=== PATIENT | male | born 1955 | race Caucasian/White ===

== ENCOUNTER 2018-02-04 21:43 | Inpatient (IN) | payer MEDICARE, MEDICAID ==
[~2018-02-04] VITALS: Ht 170.2 cm; Wt 131.1 kg
[2018-02-04] MEDS ORDERED: FUROSEMIDE 40MG/4ML VIAL IV STA (22:50)
[2018-02-04] MEDS ORDERED: NITROGLYCERIN OINT 1GM/INCH UDPKT TD STA (22:50)
[2018-02-04 23:24] LABS: CHLORIDE 101 mEq/L (98-107)
[2018-02-04 23:27] LABS: HEMATOCRIT. 25.7 % (42.0-52.0); HEMOGLOBIN. 8.7 g/dL (14.0-18.0); MEAN CORPUSCULAR HEMOGLOBIN 32.1 pg (28.0-32.0); MEAN CORPUSCULAR VOLUME 95.2 fL (80.0-94.0); PLATELET 226 x1000/uL (130-400); RED CELL DISTRIBUTION WIDTH 13.7 % (11.6-14.6)
[2018-02-05] VITALS (8 sets, daily range): BP systolic 126–147; BP diastolic 55–96
[2018-02-05 00:18] LABS: PLATELET ESTIMATE NORMAL
[2018-02-05] MEDS ORDERED: DEXTROSE 50% WATER 50ML SYRINGE IV ONE ×2 (04:25→04:30)
[2018-02-05] MEDS ORDERED: LOSA50TA20 MT (10:11)
[2018-02-05] MEDS ORDERED: GLIP10TA10 MT (10:11)
[2018-02-05] MEDS ORDERED: METF500T6 MT (10:11)
[2018-02-05] MEDS ORDERED: FURO80TA3 MT (10:11)
[2018-02-05] MEDS ORDERED: PRED-276 MT (10:11)
[2018-02-05] MEDS ORDERED: POTA10CA42 MT (10:11)
[2018-02-05] MEDS ORDERED: LEVO500T89 MT (10:11)
[2018-02-05] MEDS ORDERED: MORPHINE SULFATE 4 MG/ML CPJ (NOT FOR IM USE) IV PRN (10:15)
[2018-02-05] MEDS ORDERED: MAGNESIUM/ALUMINUM HYDROXIDE/SIMETHICONE 30ML UDC PO PRN (10:15)
[2018-02-05] MEDS ORDERED: IPRATROPIUM/ALBUTEROL 0.5-3(2.5)MG/3ML NEB INH PRN (10:15)
[2018-02-05] MEDS ORDERED: HYDROCODONE/ACETAMINOPHEN 5/325MG TABLET PO PRN (10:15)
[2018-02-05] MEDS ORDERED: ONDANSETRON HCL 4MG/2ML VIAL IV PRN (10:15)
[2018-02-05] MEDS ORDERED: CLONIDINE 0.1MG TABLET PO PRN (10:15)
[2018-02-05] MEDS ORDERED: ACETAMINOPHEN 325MG TABLET PO PRN (10:15)
[2018-02-05] MEDS ORDERED: DOCUSATE SODIUM 100MG CAPSULE PO PRN (10:15)
[2018-02-05] MEDS ORDERED: DEXTROSE 50% WATER 50ML SYRINGE IV PRN (10:30)
[2018-02-05] MEDS: FUROSEMIDE 40MG/4ML VIAL IV SCH (10:33)
[2018-02-05] MEDS: AMLODIPINE 10MG TABLET PO SCH (10:34)
[2018-02-05] MEDS ORDERED: ALBUTEROL (0.083%) 2.5MG/3ML NEB HHN PRN (11:45)
[2018-02-05] MEDS: BLOOD SUGAR DIAGNOSTIC STRIP TEST SCH ×3 (12:30→21:40)
[2018-02-05] MEDS: INSULIN LISPRO 100 UNITS/ML SUBCUT SCH ×3 (13:00→21:00)
[2018-02-05] MEDS ORDERED: IPRATROPIUM/ALBUTEROL 0.5-3(2.5)MG/3ML NEB HHN PRN (14:00)
[2018-02-05] MEDS ORDERED: LEVOFLOXACIN 500MG PREMIX 100 ML IV NR (15:00)
[2018-02-05] MEDS: CALCIUM ACETATE 667MG CAPSULE PO SCH ×2 (15:18→19:44)
[2018-02-05 18:44] LABS: PHOSPHORUS 4.4 mg/dL (2.5-4.9)
[2018-02-05 19:39] LABS: HEPATITIS B SURFACE AB < 3.1 mIU/mL
[2018-02-05 20:03] LABS: FOLIC ACID (FOLATE) SERUM 12.4 ng/mL (>5.38)
[2018-02-05 20:19] LABS: HEPATITIS B CORE AB IGM NEGATIVE
[2018-02-05] MEDS: EPOETIN ALFA 10000UNITS/ML VIAL SUBCUT SCH (21:40)
[2018-02-06] VITALS (12 sets, daily range): BP systolic 123–149; BP diastolic 53–88
[2018-02-06] MEDS: BUDESONIDE 0.5MG/2ML NEB HHN SCH ×3 (01:52→19:51)
[2018-02-06] MEDS: IPRATROPIUM/ALBUTEROL 0.5-3(2.5)MG/3ML NEB HHN SCH ×4 (01:52→19:50)
[2018-02-06] MEDS: BLOOD SUGAR DIAGNOSTIC STRIP TEST SCH ×4 (07:30→21:34)
[2018-02-06] MEDS: INSULIN LISPRO 100 UNITS/ML SUBCUT SCH ×3 (08:00→21:33)
[2018-02-06 08:01] LABS: HEMATOCRIT. 24.1 % (42.0-52.0); HEMOGLOBIN. 8.1 g/dL (14.0-18.0); MEAN CORPUSCULAR VOLUME 95.5 fL (80.0-94.0); MEAN PLATELET VOLUME 7.6 fl (7.4-10.4); PLATELET 242 x1000/uL (130-400); RED BLOOD CELL COUNT 2.52 mill/uL (4.7-6.1); RED CELL DISTRIBUTION WIDTH 13.9 % (11.6-14.6)
[2018-02-06 08:42] LABS: CHLORIDE 106 mEq/L (98-107)
[2018-02-06] MEDS: CALCITRIOL 0.25MCG CAPSULE PO SCH (10:09)
[2018-02-06] MEDS: CALCIUM ACETATE 667MG CAPSULE PO SCH ×3 (10:10→17:56)
[2018-02-06] MEDS: FUROSEMIDE 40MG/4ML VIAL IV SCH (10:10)
[2018-02-06] MEDS: AMLODIPINE 10MG TABLET PO SCH (10:11)
[2018-02-06] MEDS: FOLIC ACID/VITAMIN B COMP W-C TABLET PO SCH (10:11)
[2018-02-06 16:39] LABS: PLATELET ESTIMATE NORMAL
[2018-02-07] VITALS (12 sets, daily range): BP systolic 122–152; BP diastolic 60–106
[2018-02-07] MEDS: IPRATROPIUM/ALBUTEROL 0.5-3(2.5)MG/3ML NEB HHN SCH ×3 (01:00→21:23)
[2018-02-07 07:22] LABS: PHOSPHORUS 5.2 mg/dL (2.5-4.9)
[2018-02-07] MEDS: BLOOD SUGAR DIAGNOSTIC STRIP TEST SCH ×4 (07:30→21:32)
[2018-02-07 07:45] LABS: BASOPHILS % 0.6 % (0.0-2.0); EOSINOPHILS % 6.8 % (0.0-5.0); HEMATOCRIT. 26.3 % (42.0-52.0); HEMOGLOBIN. 8.7 g/dL (14.0-18.0); LYMPHOCYTES % 8.4 % (20.0-50.0); MEAN CORPUSCULAR HEMOGLOBIN 31.6 pg (28.0-32.0); MEAN CORPUSCULAR VOLUME 95.6 fL (80.0-94.0); MEAN PLATELET VOLUME 7.4 fl (7.4-10.4); MONOCYTES % 12.3 % (2.0-8.0); NEUTROPHILS % 71.9 % (40.0-76.0); PLATELET 265 x1000/uL (130-400); RED BLOOD CELL COUNT 2.76 mill/uL (4.7-6.1); RED CELL DISTRIBUTION WIDTH 13.7 % (11.6-14.6)
[2018-02-07] MEDS: INSULIN LISPRO 100 UNITS/ML SUBCUT SCH ×4 (08:00→21:47)
[2018-02-07] MEDS: BUDESONIDE 0.5MG/2ML NEB HHN SCH ×2 (09:14→21:23)
[2018-02-07] MEDS: CALCIUM ACETATE 667MG CAPSULE PO SCH ×3 (10:00→17:17)
[2018-02-07] MEDS: CALCITRIOL 0.25MCG CAPSULE PO SCH (10:00)
[2018-02-07] MEDS: AMLODIPINE 10MG TABLET PO SCH (10:00)
[2018-02-07] MEDS: FOLIC ACID/VITAMIN B COMP W-C TABLET PO SCH (10:00)
[2018-02-07] MEDS: FUROSEMIDE 40MG/4ML VIAL IV SCH (10:01)
[2018-02-07 10:07] LABS: HIV SCREEN 4G Non Reactive (Non Reactive)
[2018-02-07] MEDS ORDERED: LEVOFLOXACIN 500MG PREMIX 100 ML IV SCH (11:00)
[2018-02-07] MEDS ORDERED: LEVOFLOXACIN 250MG PREMIX 50 ML IV SCH (15:00)
[2018-02-07] MEDS: EPOETIN ALFA 10000UNITS/ML VIAL SUBCUT SCH (20:57)
[2018-02-08] VITALS (9 sets, daily range): BP systolic 117–159; BP diastolic 52–79
[2018-02-08] MEDS: IPRATROPIUM/ALBUTEROL 0.5-3(2.5)MG/3ML NEB HHN SCH ×4 (03:00→14:24)
[2018-02-08 06:56] LABS: BASOPHILS % 0.6 % (0.0-2.0); EOSINOPHILS % 6.2 % (0.0-5.0); HEMATOCRIT. 27.6 % (42.0-52.0); HEMOGLOBIN. 9.2 g/dL (14.0-18.0); LYMPHOCYTES % 8.1 % (20.0-50.0); MEAN CORPUSCULAR HEMOGLOBIN 31.6 pg (28.0-32.0); MEAN CORPUSCULAR VOLUME 95.2 fL (80.0-94.0); MONOCYTES % 10.1 % (2.0-8.0); PLATELET 288 x1000/uL (130-400); RED CELL DISTRIBUTION WIDTH 13.7 % (11.6-14.6)
[2018-02-08 07:26] LABS: PHOSPHORUS 4.5 mg/dL (2.5-4.9)
[2018-02-08] MEDS: BLOOD SUGAR DIAGNOSTIC STRIP TEST SCH ×2 (07:30→12:35)
[2018-02-08] MEDS: BUDESONIDE 0.5MG/2ML NEB HHN SCH (08:14)
[2018-02-08] MEDS: CALCIUM ACETATE 667MG CAPSULE PO SCH ×2 (08:23→12:45)
[2018-02-08] MEDS: FOLIC ACID/VITAMIN B COMP W-C TABLET PO SCH (08:23)
[2018-02-08] MEDS: INSULIN LISPRO 100 UNITS/ML SUBCUT SCH ×2 (08:26→12:45)
[2018-02-08] MEDS: AMLODIPINE 10MG TABLET PO SCH (09:00)
[2018-02-08 13:03] LABS: T4 FREE 1.58 ng/dL (0.76-1.46)
[2018-02-10 14:11] LABS: *HIV-1 RNA BY PCR <20 copies/mL (.)
== END 2018-02-08 16:55 | disposition home or self-care (01) | DRG 291 ==
LOC: ER 21:46 → EDBEDREQ 02-05 01:10 → EDBEDREQTM 02-05 01:10 → EDBEDREQDT 02-05 01:10 → ENRESERV 02-05 02:11 → CANRESERV 02-05 02:11 → EDBEDREQSVC 02-05 05:20 → 5EST 02-05 08:05 → ENRESERV 02-05 08:06 → EDBEDREQ 02-05 08:13
PROVIDERS: ADMIT Hospitalist; ATTEND Hospitalist
PROC: 5A1D70Z Performance of Urinary Filtration, Intermittent, Less than 6 Hours Per Day (ICD-10-PCS; principal; 2018-02-05)
PROC: 5A1D70Z Performance of Urinary Filtration, Intermittent, Less than 6 Hours Per Day (ICD-10-PCS; 2018-02-06)
PROC: 5A1D70Z Performance of Urinary Filtration, Intermittent, Less than 6 Hours Per Day (ICD-10-PCS; 2018-02-07)
DX: I13.2 Hypertensive heart and chronic kidney disease with heart failure and with stage 5 chronic kidney disease, or end stage renal disease (principal); I50.33 Acute on chronic diastolic (congestive) heart failure; J96.00 Acute respiratory failure, unspecified whether with hypoxia or hypercapnia; N18.6 End stage renal disease; N17.9 Acute kidney failure, unspecified; J44.0 Chronic obstructive pulmonary disease with (acute) lower respiratory infection; E11.40 Type 2 diabetes mellitus with diabetic neuropathy, unspecified; K21.9 Gastro-esophageal reflux disease without esophagitis; E11.319 Type 2 diabetes mellitus with unspecified diabetic retinopathy without macular edema; E11.649 Type 2 diabetes mellitus with hypoglycemia without coma; D64.9 Anemia, unspecified; E11.22 Type 2 diabetes mellitus with diabetic chronic kidney disease; M10.9 Gout, unspecified; E83.51 Hypocalcemia; E11.42 Type 2 diabetes mellitus with diabetic polyneuropathy; K21.0 Gastro-esophageal reflux disease with esophagitis; E78.5 Hyperlipidemia, unspecified; Z99.2 Dependence on renal dialysis
CPT/HCPCS: 36415; 71045; 76770; 80048; 80053; 80061; 82607; 82728; 82746; 82962; 83036; 83540; 83550; 83735; 83880; 84100; 84439; 84443; 84484; 85025; 85379; 86705; 86706; 86803; 87186; 87536; 93005; 93306; 93970; 94640; 96374; 96375; 99285; J0885; J1815; J1940; J1956; J7030; J7050; J7620; J7626

== ENCOUNTER 2018-02-10 14:23 | Inpatient (IN) | payer MEDICARE, MEDICAID ==
[~2018-02-10] VITALS: Ht 170.2 cm; Wt 93.9 kg
[~2018-02-10 14:23] MED LIST: FURO80TA3 MT; GLIP10TA10 MT; LEVO500T89 MT; LOSA50TA20 MT; METF500T6 MT; POTA10CA42 MT; PRED-276 MT
[2018-02-10] MEDS ORDERED: ONDANSETRON HCL 4MG/2ML VIAL IV PRN (17:30)
[2018-02-10] MEDS ORDERED: ACETAMINOPHEN 325MG TABLET PO PRN (17:30)
[2018-02-10] MEDS ORDERED: CLONIDINE 0.1MG TABLET PO PRN (17:30)
[2018-02-10] MEDS ORDERED: DOCUSATE SODIUM 100MG CAPSULE PO PRN (17:30)
[2018-02-10] MEDS ORDERED: DIPHENHYDRAMINE 50MG/ML VIAL IV PRN (17:30)
[2018-02-10] MEDS ORDERED: IPRATROPIUM/ALBUTEROL 0.5-3(2.5)MG/3ML NEB INH PRN (17:30)
[2018-02-10 17:42] LABS: BASOPHILS % 0.6 % (0.0-2.0); EOSINOPHILS % 5.7 % (0.0-5.0); HEMATOCRIT. 27.3 % (42.0-52.0); LYMPHOCYTES % 10.4 % (20.0-50.0); MEAN CORPUSCULAR HEMOGLOBIN 31.6 pg (28.0-32.0); MEAN CORPUSCULAR VOLUME 95.9 fL (80.0-94.0); MEAN PLATELET VOLUME 6.5 fl (7.4-10.4); MONOCYTES % 10.4 % (2.0-8.0); NEUTROPHILS % 72.9 % (40.0-76.0); PLATELET 315 x1000/uL (130-400); RED BLOOD CELL COUNT 2.84 mill/uL (4.7-6.1); RED CELL DISTRIBUTION WIDTH 13.6 % (11.6-14.6)
[2018-02-10 17:46] LABS: INR 1.2
[2018-02-10 17:50] LABS: CHLORIDE 108 mEq/L (98-107)
[2018-02-10 20:35] VITALS: BP 140/61
[2018-02-10 20:36] VITALS: BP 140/61
[2018-02-10] MEDS ORDERED: DEXTROSE 50% WATER 50ML SYRINGE IV PRN (22:15)
[2018-02-11] VITALS (7 sets, daily range): BP systolic 127–150; BP diastolic 63–77
[2018-02-11] MEDS: BLOOD SUGAR DIAGNOSTIC STRIP TEST SCH ×4 (05:48→22:30)
[2018-02-11] MEDS: INSULIN LISPRO 100 UNITS/ML SUBCUT SCH ×4 (06:41→22:40)
[2018-02-11] MEDS: AMLODIPINE 10MG TABLET PO SCH (09:11)
[2018-02-11] MEDS: ENOXAPARIN 30MG/0.3ML SYR SUBCUT SCH (09:11)
[2018-02-12] VITALS: BP 126/66
[2018-02-12 05:30] VITALS: BP 127/63
[2018-02-12] MEDS: BLOOD SUGAR DIAGNOSTIC STRIP TEST SCH (07:40)
[2018-02-12 07:52] LABS: BASOPHILS % 0.6 % (0.0-2.0); EOSINOPHILS % 5.2 % (0.0-5.0); HEMATOCRIT. 28.8 % (42.0-52.0); HEMOGLOBIN. 9.8 g/dL (14.0-18.0); LYMPHOCYTES % 9.2 % (20.0-50.0); MEAN CORPUSCULAR HEMOGLOBIN 32.1 pg (28.0-32.0); MEAN CORPUSCULAR VOLUME 94.2 fL (80.0-94.0); MEAN PLATELET VOLUME 6.8 fl (7.4-10.4); MONOCYTES % 10.8 % (2.0-8.0); NEUTROPHILS % 74.2 % (40.0-76.0); PLATELET 329 x1000/uL (130-400); RED BLOOD CELL COUNT 3.06 mill/uL (4.7-6.1); RED CELL DISTRIBUTION WIDTH 13.7 % (11.6-14.6)
[2018-02-12 08:00] VITALS: BP 134/64
[2018-02-12] MEDS: INSULIN LISPRO 100 UNITS/ML SUBCUT SCH (08:01)
[2018-02-12] MEDS: AMLODIPINE 10MG TABLET PO SCH (08:57)
[2018-02-12] MEDS: ENOXAPARIN 30MG/0.3ML SYR SUBCUT SCH (08:57)
[2018-02-12 11:03] VITALS: BP 134/64
== END 2018-02-12 11:44 | disposition home or self-care (01) | DRG 291 ==
LOC: ER 16:01 → 5WST 17:18 → EDBEDREQ 17:19 → EDBEDREQTM 17:19 → SUPCPDRO 17:26 → ENRESERV 19:45 → 7WST 02-11 16:07
PROVIDERS: ADMIT Hospitalist; ATTEND Hospitalist
PROC: 5A1D70Z Performance of Urinary Filtration, Intermittent, Less than 6 Hours Per Day (ICD-10-PCS; principal; 2018-02-11)
DX: I13.2 Hypertensive heart and chronic kidney disease with heart failure and with stage 5 chronic kidney disease, or end stage renal disease (principal); I50.33 Acute on chronic diastolic (congestive) heart failure; N18.6 End stage renal disease; I33.0 Acute and subacute infective endocarditis; E11.22 Type 2 diabetes mellitus with diabetic chronic kidney disease; M10.9 Gout, unspecified; J44.9 Chronic obstructive pulmonary disease, unspecified; K21.9 Gastro-esophageal reflux disease without esophagitis; Z79.84 Long term (current) use of oral hypoglycemic drugs; Z79.2 Long term (current) use of antibiotics; Z99.2 Dependence on renal dialysis; Z79.899 Other long term (current) drug therapy
CPT/HCPCS: 36415; 80048; 80053; 82962; 83735; 84484; 85025; 85610; 87040; 93005; 93308; 93970; 99285; A4565; J1650; J1815